=== PATIENT | female | born 1965 | race Caucasian/White ===

== ENCOUNTER 2016-03-22 10:56 | Emergency (ER) | END 2016-03-22 14:01 | disposition home or self-care (01) | DX: N12 Tubulo-interstitial nephritis, not specified as acute or chronic (principal); K59.00 Constipation, unspecified; I10 Essential (primary) hypertension; E11.9 Type 2 diabetes mellitus without complications; Z79.4 Long term (current) use of insulin | CPT/HCPCS: 74177; 80053; 81001; 82962; 83690; 85025; J0696; J2270; J2405; J7030; Q9967; Z7610 ==